=== PATIENT | female | born 1995 | race Caucasian/White ===

== ENCOUNTER 2019-04-01 02:16 | Emergency (ER) | payer SELFPAY ==
[2019-04-01 02:17] VITALS: BP 116/75; PULSE 128; RESP 15; TEMP 37.6; O2SAT 96; BMI 19.6
[2019-04-01] MEDS: dexAMETHasone 10 MG/ML Vial PO.IVFORM (02:57)
[2019-04-01] MEDS: Ketorolac 60 MG/2 ML Vial IM (02:58)
--- NOTE | 2019-04-01 03:25 | ED.VIS.URI ---
History of Present Illness Chief Complaint: Fever Informant: Patient Onset: Days - 2 Context: Gradual Onset Timing: Continuous Quality: sore Location: throat Current Severity: Moderate Maximum Severity: Moderate Worsened by: Swallowing Relieved by: - - nothing. taken no meds. Associated Symptoms: Nasal Congestion, Myalgias, Nausea, Vomiting, Nonproductive cough - mild. Negative for: Diarrhea, Shortness of Breath, Chest Pain Narrative: A little nausea and vomited twice. Arthralgias have been chronic for 3 years, she has a history of rheumatoid arthritis and lupus that remains untreated simply because she does not have a doctor and does not see 1 regularly. She states the symptoms are annoying but she can live with them. She has myalgias on top of the arthralgias now with this illness. Febrile at home. - Past Medical History (1) SLE (systemic lupus erythematosus) Status: Chronic (2) Rheumatoid arthritis Status: Chronic Past Medical History - Allergies and Home Meds Allergies/Adverse Reactions: Allergies aspirin Adverse Reaction (Verified 04/01/19 02:20) Nausea/Vom/Diarrhea COCONUT Allergy (Uncoded 01/04/15 19:19) Swelling Primary Care Physician: Care Physician,No Primary [Primary Care Provider] - Lives: Spouse/ Significant Other Smoking Status: Never smoker Drugs: None Review of Systems General: Reports: Fever, Malaise Eyes: Denies: Visual changes - bilaterally, Diplopia ENT: Reports: Sore throat. Denies: Bilateral ear pain Cardiovascular: Denies: Chest pain, Palpitations Respiratory: Reports: Cough. Denies: Dyspnea, Sputum, Dyspnea on exertion Gastrointestinal: Reports: Nausea, Vomiting. Denies: Abdominal pain, Diarrhea, Melena, Hematochezia Musculoskeletal: Reports: Myalgias, Arthralgias, Neck pain. Denies: Back pain, Swelling, Extremity Pain Skin: Denies: Rash, Wounds Neurological: Reports: Headache. Denies: Weakness, Parasthesia Physical Exam Vital Signs/Narrative: Vital Signs Temp Pulse Resp BP Pulse Ox 04/01/19 02:17 99.7 F H 128 H 15 116/75 96 Inital Vital Signs reviewed: Yes General: Well nourished, Well developed Head: Normocephalic, Atraumatic Eyes: Perrl, EOMI Ears: Normal external canal, TM's clear Nose: Normal Inspection, No Rhinorrhea Mouth/Throat: Normal Inspection, Posterior Oropharyngeal Erythema Tonsils: Negative for: Right Tonsilar Erythema, Left Tonsilar Erythema, Right Tonsilar Exudates, Left Tonsilar Exudates, Right Tonsilar Swelling, Left Tonsilar Swelling Neck: Supple, No Meningismus, Anterior Lymphadenopathy. Negative for: Posterior Lymphadenopathy Cardiovascular: Regular rate, Regular rhythm, No murmurs, Tachycardia Respiratory: No distress, CTA bilaterally, Chest nontender Abdomen: Soft, Nontender, Nondistended, Normal bowel sounds Back: Nontender, Normal Inspection. Negative for: CVA tenderness Extremities: Nontender, No edema Skin: Normal color, No rash, No Trauma Neurological: Alert, Oriented x3, Cranial nerves II-XII grossly intact, Normal Strength, Normal Sensation, Normal Gait Psychological: Normal affect, Normal Mood Diagnostic/Tx/Re-eval - Medical Decision Making Rapid strep is negative. Culture is sent. Presumed viral illness given her symptoms, unless culture returns positive, will treat with supportive care. Given Toradol here as well as Decadron which hopefully will help her symptoms as well as her chronic arthralgias. Prescribed Zofran as well, and given a dose here. At this time, we have seen no cases of influenza yet. ED Disposition - Plan for ED Patient: Disposition: Home or Assisted Living Diagnosis: Viral syndrome Instructions: VIRAL SYNDROME (Adult) Prescriptions: Ondansetron [Zofran] 8 mg PO Q8H PRN PRN #12 tab PRN Reason: Nausea Prescription Printed Referrals: Cari Rodriguez [NON-STAFF] - 1 Week if not improving
[2019-04-01] MEDS: Ondansetron ODT 4 MG Tablet 8 MG PO (03:42)
[2019-04-01 03:44] VITALS: BP 95/72; PULSE 70; RESP 16; O2SAT 97
== END 2019-04-01 03:49 | disposition home or self-care (01) ==
PROVIDERS: Emergency Provider Emergency Medicine
DX: B34.9 Viral infection, unspecified (principal); R11.2 Nausea with vomiting, unspecified; J02.9 Acute pharyngitis, unspecified; R05 Cough; R51 Headache; M32.9 Systemic lupus erythematosus, unspecified; M06.9 Rheumatoid arthritis, unspecified
CPT/HCPCS: 87880; 96372; 99283

== ENCOUNTER 2019-09-21 20:39 | Emergency (ER) | payer SELFPAY ==
[2019-09-21 20:40] VITALS: BP 105/71; PULSE 90; RESP 15; TEMP 36.3; O2SAT 99; BMI 20.2
--- NOTE | 2019-09-21 21:02 | CT_ITS ---
STUDY: CT BRAIN WITHOUT CONTRAST REASON FOR EXAM: Female, 24 years old. PT STATED SYNCOPE TODAY, HAPPENS NEARLY WEEKLY RADIATION DOSAGE (If Supplied By Facility): CTDIvol = ( 443.99 ) mGy, DLP = ( 745.49 ) mGycm TECHNIQUE: Transaxial CT imaging of the brain was performed without administration of intravenous contrast material. Individualized dose optimization techniques were used for this CT. COMPARISON: No relevant priors. FINDINGS: Normal soft tissue structures. Normal calvarium. Normal size ventricles and extra-axial spaces for the patient''s age. There is mild asymmetry of the deep white matter. There is mild hypodensity within the left frontal parietal lobe white matter.. Normal basal ganglia and thalami. Normal brainstem. Normal cerebellum. There is no intracranial hemorrhage. There are no findings of an acute ischemic infarction. Normal visualized paranasal sinuses. CT/Brain/Head without Contrast IMPRESSION: Mild asymmetry in the white matter which may be a normal variant. However subtle edema within the left frontal parietal lobes cannot be excluded. MRI brain follow-up is recommended Electronically Signed: Tip Lane, at 22:50 EDT Tel , Service support ,
--- NOTE | 2019-09-21 21:02 | EKG12_ITS ---
Test Reason : SYNCOPE Blood Pressure : / mmHG Vent. Rate : 083 BPM Atrial Rate : 083 BPM P-R Int : 150 ms QRS Dur : 082 ms QT Int : 360 ms P-R-T Axes : 057 064 021 degrees QTc Int : 423 ms Normal sinus rhythm Normal ECG Confirmed by HIREN CARCAMO, JAY ([id number]), graphic editor NEAL JUNE ([id number]) on 09/25/2019 2:37:15 PM Referred By: KAISER Confirmed By:JAY MARADIAGA MD
[2019-09-21 22:05] LABS: Absolute Lymphocyte Count 1.55 X10^3/uL (0.83-4.51); Absolute Neutrophil Count 1.9 X10^3/uL (2.0-7.7); Basophil# 0.01 X10^3/uL; Basophil% 0.2 % (0-1); Eosinophil# 0.04 X10^3/uL; Hematocrit 35.5 % (37-47); Hemoglobin 11.6 g/dL (12.0-15.0); Lymphocyte # 1.55 X10^3/ul (4.0); Lymphocyte % 38.1 % (19-41); Mean Corp Hgb Conc 32.7 g/dL (32-36); Mean Corpuscular Volume 85.7 fL (81-99); Mean Platelet Vol. 10.7 fl (6.2-12.0); Monocyte# 0.54 X10^3/uL; Monocyte% 13.3 % (0-10); NRBC Flagged by Analyzer 0 % (0-5); Neutrophil # 1.92 X10^3/uL (2.7-7.7); Neutrophil % 47.2 % (47-70); Platelet Count 207 K/mm3 (150-450); RBC Distribution Width CV 12.5 % (11.6-14.6); RBC Distribution Width SD 38.5 fl (35.1-43.9); Red Blood Count 4.14 M/mm3 (4.2-5.4); White Blood Count 4.1 K/mm3 (4.4-11.0)
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
[2019-09-21 22:21] LABS: Anion Gap 3 (5-15); BUN 11 mg/dL (7-18); BUN/Creat Ratio 16.2 RATIO (10-20); Calcium,Total 9.1 mg/dL (8.5-10.1); Chloride 108 mmol/L (98-107); Creatinine, Serum 0.68 mg/dL (0.55-1.02); EST Glomerular Filtration Rate 115 mL/min (>60); Est Glom Filt Rate - Afr Amer 139 mL/min (>60); Estimated Creatinine Clearance 97.09 ml/min; Glucose 80 mg/dL (74-106); Potassium 3.7 mmol/L (3.5-5.1); Sodium Level 138 mmol/L (136-145)
[2019-09-21 22:38] LABS: Internal QC Validated? YES +Cl - CLEAR BKGD; Pregnancy, Serum, hCG Quali. NEGATIVE Negative
[2019-09-21 22:46] LABS: Thyroid Stim Hormone (TSH) 3.66 uIU/mL (0.358-3.74)
--- NOTE | 2019-09-21 22:58 | ED.DEP ---
ED Disposition - Plan for ED Patient: Instructions: ED Fainting Uncertain Cause Referrals: Care Physician,No Primary [Primary Care Provider] - Nneka Peters MD [STAFF PHYSICIAN] - 3-5 Days
[2019-09-21 23:01] VITALS: BP 106/82; BP 111/76; BP 112/82; PULSE 82; PULSE 89; PULSE 96
[2019-09-21] MEDS: Acetaminophen 325 MG Tablet 650 MG PO (23:15)
[2019-09-21 23:17] VITALS: BP 106/69; PULSE 97; RESP 19; O2SAT 98
== END 2019-09-21 23:29 | disposition home or self-care (01) ==
LOC: ED 23:27
PROVIDERS: Emergency Provider Emergency Medicine
DX: R55 Syncope and collapse (principal); T23.222A Burn of second degree of single left finger (nail) except thumb, initial encounter; X13.1XXA Other contact with steam and other hot vapors, initial encounter; Y93.9 Activity, unspecified; Y92.9 Unspecified place or not applicable; E03.9 Hypothyroidism, unspecified; M06.9 Rheumatoid arthritis, unspecified; M41.9 Scoliosis, unspecified; D72.819 Decreased white blood cell count, unspecified; Z86.2 Personal history of diseases of the blood and blood-forming organs and certain disorders involving the immune mechanism
CPT/HCPCS: 70450; 80048; 84443; 84703; 85025; 93005; 99284

== ENCOUNTER 2020-05-14 17:25 | Emergency (ER) | payer SELFPAY ==
[2020-05-14 17:26] VITALS: BP 111/76; PULSE 96; RESP 14; TEMP 36.8; O2SAT 98; BMI 20.4
--- NOTE | 2020-05-14 17:40 | EKG12_ITS ---
Test Reason : CP Blood Pressure : / mmHG Vent. Rate : 096 BPM Atrial Rate : 096 BPM P-R Int : 146 ms QRS Dur : 076 ms QT Int : 340 ms P-R-T Axes : 068 057 031 degrees QTc Int : 429 ms Normal sinus rhythm Normal ECG Confirmed by SABI CARCAMO, MISHA ([id number]), technical writer and editor MICHELE HARRINGTON ([id number]) on 05/19/2020 11:07:41 AM Referred By: MARLON Confirmed By:QUE ECLESTIN MD
[2020-05-14] MEDS: 0.9% Normal Saline 1,000 ML 150 ML IV (18:05)
[2020-05-14 18:09] VITALS: BP 107/68; BP 107/71; BP 115/81; PULSE 106; PULSE 95; PULSE 97
[2020-05-14 18:17] LABS: Absolute Lymphocyte Count 1.45 X10^3/uL (0.83-4.51); Absolute Neutrophil Count 4.8 X10^3/uL (2.0-7.7); Basophil# 0.02 X10^3/uL; Basophil% 0.3 % (0-1); Eosinophil# 0.07 X10^3/uL; Hematocrit 36.6 % (37-47); Hemoglobin 11.6 g/dL (12.0-15.0); Lymphocyte # 1.45 X10^3/ul (4.0); Lymphocyte % 21.3 % (19-41); Mean Corp Hgb Conc 31.7 g/dL (32-36); Mean Corpuscular Hgb 26.9 pg (27.0-32.0); Mean Corpuscular Volume 84.9 fL (81-99); Mean Platelet Vol. 10.9 fl (6.2-12.0); Monocyte% 7.3 % (0-10); NRBC Flagged by Analyzer 0 % (0-5); Neutrophil # 4.75 X10^3/uL (2.7-7.7); Neutrophil % 69.8 % (47-70); Platelet Count 236 K/mm3 (150-450); RBC Distribution Width CV 12.9 % (11.6-14.6); RBC Distribution Width SD 39.5 fl (35.1-43.9); Red Blood Count 4.31 M/mm3 (4.2-5.4); White Blood Count 6.8 K/mm3 (4.4-11.0)
--- NOTE | 2020-05-14 18:20 | RAD_ITS ---
STUDY: X-RAY CHEST REASON FOR EXAM: Female, 24 years old. Chest pain, syncope TECHNIQUE: Single frontal view of the chest. COMPARISON: 12/28/2014 FINDINGS: Cardiac silhouette unremarkable. Pulmonary vascularity unremarkable. Aorta unremarkable. No focal airspace opacities. No pleural effusions. Upper abdomen unremarkable. Osseous structures demonstrating incompletely characterized scoliosis. No pneumothorax. RAD/Chest 1 View (Portable) IMPRESSION: No acute cardiopulmonary process identified. Electronically Signed: Serg Noyola, at 18:58 EST Tel , Service support ,
[2020-05-14 18:28] LABS: Internal QC Validated? YES +Cl - CLEAR BKGD; Pregnancy, Serum, hCG Quali. NEGATIVE Negative
[2020-05-14 18:29] LABS: D-Dimer Quantitative (DVT/PE) <= 0.27 FEU/ug/m (0.27-0.49)
[2020-05-14 18:36] LABS: Anion Gap 6 (5-15); BUN 11 mg/dL (7-18); BUN/Creat Ratio 13.3 RATIO (10-20); Chloride 106 mmol/L (98-107); Creatinine, Serum 0.83 mg/dL (0.55-1.02); EST Glomerular Filtration Rate 90 mL/min (>60); Est Glom Filt Rate - Afr Amer 109 mL/min (>60); Estimated Creatinine Clearance 79.55 ml/min; Glucose 92 mg/dL (74-106); Potassium 3.6 mmol/L (3.5-5.1); Sodium Level 139 mmol/L (136-145)
[2020-05-14 19:02] VITALS: BP 146/86; PULSE 70; RESP 16; O2SAT 98
--- NOTE | 2020-05-14 19:30 | CT_ITS ---
STUDY: CTA CHEST REASON FOR EXAM: Female, 24 years old. CHEST PAIN AND PASSED OUT WHILE WORKING OUT RADIATION DOSAGE (If Supplied By Facility): CTDIvol = ( 3.92 ) mGy, DLP = ( 121.19 ) mGycm TECHNIQUE: The examination was performed with the intravenous administration of IV 100mL Isovue-370. Post-processing of the angiographic images was performed, with multiplanar reformation and 3D reconstruction. Individualized dose optimization techniques were used for this CT. COMPARISON: 05/14/2020 FINDINGS: Normal enhancement of the main pulmonary artery and right and left pulmonary arteries. Normal enhancement of the bilateral peripheral pulmonary arteries. There is no demonstrated pulmonary embolism. Normal thoracic aorta and visualized great vessels. There is no demonstrated aortic dissection. Normal heart and pericardium. Normal mediastinum. Normal hilar regions. Normal visualized trachea and bronchi. The lungs are well expanded. Normal pulmonary parenchyma. Normal pleura. Normal chest wall structures. Normal osseous structures. Normal visualized upper abdomen. CT/CTA Chest W/WO Contrast IMPRESSION: Normal CTA chest examination, without a demonstrated pulmonary embolism or arterial dissection. Electronically Signed: Temo Pozo MD at 20:06 EST , Service support ,
--- NOTE | 2020-05-14 20:09 | ED.VISSUMM ---
- ER Visit Summary Date of Service: 05/14/20 Chief Complaint: [Chest pain and syncope] History of Present Illness: The patient is a 24 F [presents to the emergency department with complaint of chest pain that started about an hour ago. Patient states that she was working out when she started having discomfort in her chest and she got lightheaded and sat down and then passed out for a few seconds. Patient tells me that she had similar episode 2 months ago but never sought any attention for it. Patient states that when she was younger this used to happen all the time. Patient described tightness in her chest. And she rated her pain a 5 out of 10 on arrival. She denies any significant shortness of breath. She denies diaphoresis. She had no nausea or vomiting. Patient states that she had another negative Covid test 5 days ago. Patient had a cough last week but that seems to have improved. No family history of sudden cardiac . No family history of dysrhythmias that she is aware of.] Physical Examination: [HEENT-PERRLA, EOMI. Cranial nerves II through XII grossly intact. TMs clear. Mucous membranes moist. No adenopathy. Cardiovascular-regular rate and rhythm without murmur or ectopy Lungs-clear to auscultation, chest wall stable without crepitus or subcu emphysema Abdomen-normoactive bowel sounds, soft, nontender, no rebound or rigidity, no peritoneal signs. Extremities-intact ?4, normal range of motion, normal pulses, atraumatic] Test Results: [EKG obtained arrival shows sinus rhythm with a ventricular rate of 96 bpm with no acute ST segment changes. CBC with differential was normal. Chest x-ray read by myself as normal and radiology read it as no acute disease. Troponin was less than 0.015. D-dimer was normal at less than 0.27. hCG was negative.] Emergency Department Course and Treatment: [IV line established on arrival. Patient case discussed with cardiology on-call Dr. Darion Pederson who recommended obtaining a CTA of the chest to rule out thoracic outlet syndrome versus other vascular anomaly. 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 It may contain incorrect words, spelling, and punctuation that were not noted in review of the chart prior to signing ED Disposition - Plan for ED Patient: Referrals: Care Physician,No Primary [Primary Care Provider] -
--- NOTE | 2020-05-14 20:13 | ED.DEP ---
ED Disposition - Plan for ED Patient: Instructions: ED Chest Pain, Uncertain Cause, ED Near-Fainting, Uncertain Cause Referrals: Care Physician,No Primary [Primary Care Provider] - Анна Jason MD [STAFF PHYSICIAN] - 3-5 Days
[2020-05-14 20:23] VITALS: BP 108/70; PULSE 93; RESP 14; O2SAT 999
== END 2020-05-14 20:24 | disposition home or self-care (01) ==
LOC: ED 18:51
PROVIDERS: Emergency Provider Emergency Medicine
DX: R07.89 Other chest pain (principal); R55 Syncope and collapse; M06.9 Rheumatoid arthritis, unspecified
CPT/HCPCS: 71045; 71275; 80048; 84484; 84703; 85025; 85379; 93005; 96360; 96361; 99285; J7030; Q9967; A4216

== ENCOUNTER 2020-06-28 03:52 | Emergency (ER) | payer SELFPAY ==
[2020-06-28 03:52] VITALS: BP 96/76; PULSE 91; RESP 14; O2SAT 98
[2020-06-28 03:53] VITALS: BP 118/86; PULSE 114; RESP 16; TEMP 36.4; O2SAT 100; BMI 19.6
--- NOTE | 2020-06-28 03:55 | ED.VIS.GEN ---
History of Present Illness Chief Complaint: ETOH Intox Informant: Patient Onset: Today Context: Gradual Onset Timing: Continuous Current Severity: Moderate Maximum Severity: Moderate Narrative: Patient is a 24-year-old female with history of lupus and rheumatoid arthritis who presents with alcohol intoxication. Patient states she was out with friends drinking. She states that she was drinking whiskey and then shots of vodka. She states she got sick and started to vomit. She states that she then had a panic attack because she felt like she could not breathe. She denies being suicidal homicidal. She denies abdominal pain. The patient is very apologetic and tearful on arrival. Prior similar symptoms: No Recent Illness/Hospitalization: No Past Medical History - Allergies and Home Meds Allergies/Adverse Reactions: Allergies tizanidine Allergy (Verified 06/28/20 03:57) NEEDS FOLLOW-UP aspirin Adverse Reaction (Verified 06/28/20 03:57) Nausea/Vom/Diarrhea COCONUT Allergy (Uncoded 05/14/20 17:29) Swelling MUSCLE RELAXER Adverse Reaction (Uncoded 05/14/20 17:29) NEEDS FOLLOW-UP Primary Care Physician: Care Physician,No Primary [Primary Care Provider] - Prior records reviewed: Yes Past Medical History: - - Lupus, rheumatoid arthritis, scoliosis Surgical History: noncontributory Smoking Status: Never smoker Review of Systems General: Denies: Chills, Fever, Sweats Eyes: Denies: Visual changes - bilaterally, Diplopia ENT: Denies: Rhinorrhea, Sore throat Cardiovascular: Denies: Chest pain, Palpitations Respiratory: Denies: Dyspnea, Cough, Dyspnea on exertion Gastrointestinal: Reports: Nausea, Vomiting. Denies: Abdominal pain, Diarrhea, Melena, Hematochezia Genitourinary: Denies: Dysuria, Hematuria, Frequency Musculoskeletal: Denies: Back pain, Extremity Pain Skin: Denies: Rash, Wounds Neurological: Denies: Headache, Weakness, Numbness Physical Exam Inital Vital Signs reviewed: Yes General: Well nourished, Well developed, No Acute Distress Head: Normocephalic, Atraumatic Eyes: Perrl, EOMI ENT: Moist mucous membranes, No rhinorrhea Neck: Supple, Nontender Cardiovascular: Regular rate, Regular rhythm, No murmurs Respiratory: No distress, CTA bilaterally, Chest nontender Abdomen: Soft, Nontender, Nondistended, Normal bowel sounds Back: Nontender, Normal Inspection Extremities: Nontender, No edema Skin: Normal color, No rash Neurological: Alert, Oriented x3, Cranial nerves II-XII grossly intact, Normal Strength, Normal Sensation Psychological: Normal affect, Normal Mood Diagnostic/Tx/Re-eval Abnormal Lab Results 06/28/20 06/28/20 06/28/20 04:03 04:03 04:03 WBC 5.3 RBC 4.65 Hgb 12.9 Hct 39.5 MCV 84.9 MCH 27.7 MCHC 32.7 RDW Std Deviation 39.8 RDW Coeff of Davina 13.0 Plt Count 273 MPV 10.5 Immature Gran % (Auto) 0.200 Neut % (Auto) 50.2 Lymph % (Auto) 42.5 H [place] % (Auto) 6.1 Eos % (Auto) 0.8 Baso % (Auto) 0.2 Absolute Neuts (auto) 2.7 Absolute Lymphs (auto) 2.24 Nucleated RBC % 0 Sodium 141 Potassium 3.6 Chloride 107 Carbon Dioxide 25.0 Anion Gap 9 BUN 11 Creatinine 0.88 Estim Creat Clear Calc 73.93 Est GFR (MDRD) Af Amer 102 Est GFR (MDRD) Non-Af 84 BUN/Creatinine Ratio 12.5 Glucose 117 H Calcium 9.8 Serum , Qual Ethyl Alcohol 213.0 06/28/20 04:03 WBC RBC Hgb Hct MCV MCH MCHC RDW Std Deviation RDW Coeff of Davina Plt Count MPV Immature Gran % (Auto) Neut % (Auto) Lymph % (Auto) [place] % (Auto) Eos % (Auto) Baso % (Auto) Absolute Neuts (auto) Absolute Lymphs (auto) Nucleated RBC % Sodium Potassium Chloride Carbon Dioxide Anion Gap BUN Creatinine Estim Creat Clear Calc Est GFR (MDRD) Af Amer Est GFR (MDRD) Non-Af BUN/Creatinine Ratio Glucose Calcium Serum , Qual NEGATIVE Ethyl Alcohol - Medical Decision Making The patient presents intoxicated with vomiting. She is also complaining of anxiety. She does have mild tachycardia. IV was established. Labs were obtained. Patient's alcohol level is elevated. However, the rest of her labs are unremarkable. She was given fluids and Phenergan. The patient will be observed. Her tachycardia has improved. I do feel that once the patient can demonstrate clinical sobriety she can be discharged to home. If any change occurs, addendum will be added. Impression 1. Alcohol intoxication ED Disposition - Plan for ED Patient: Instructions: ED Alcohol Intoxication Referrals: Care Physician,No Primary [Primary Care Provider] -
[2020-06-28] MEDS: proMETHazine 25 MG/ML Syringe 12.5 MG IV (04:03)
[2020-06-28] MEDS: 0.9% Normal Saline 1,000 ML 1000 ML IV (04:05)
[2020-06-28 04:08] LABS: Absolute Lymphocyte Count 2.24 X10^3/uL (0.83-4.51); Absolute Neutrophil Count 2.7 X10^3/uL (2.0-7.7); Basophil# 0.01 X10^3/uL; Basophil% 0.2 % (0-1); Eosinophil# 0.04 X10^3/uL; Eosinophils% 0.8 % (0-5); Hematocrit 39.5 % (37-47); Hemoglobin 12.9 g/dL (12.0-15.0); Lymphocyte # 2.24 X10^3/ul (4.0); Lymphocyte % 42.5 % (19-41); Mean Corp Hgb Conc 32.7 g/dL (32-36); Mean Corpuscular Hgb 27.7 pg (27.0-32.0); Mean Corpuscular Volume 84.9 fL (81-99); Mean Platelet Vol. 10.5 fl (6.2-12.0); Monocyte# 0.32 X10^3/uL; Monocyte% 6.1 % (0-10); NRBC Flagged by Analyzer 0 % (0-5); Neutrophil # 2.65 X10^3/uL (2.7-7.7); Neutrophil % 50.2 % (47-70); Platelet Count 273 K/mm3 (150-450); RBC Distribution Width SD 39.8 fl (35.1-43.9); Red Blood Count 4.65 M/mm3 (4.2-5.4); White Blood Count 5.3 K/mm3 (4.4-11.0)
[2020-06-28 04:18] LABS: Internal QC Validated? YES +Cl - CLEAR BKGD
[2020-06-28 04:19] LABS: Pregnancy, Serum, hCG Quali. NEGATIVE Negative
[2020-06-28 04:21] LABS: Anion Gap 9 (5-15); BUN 11 mg/dL (7-18); BUN/Creat Ratio 12.5 RATIO (10-20); Calcium,Total 9.8 mg/dL (8.5-10.1); Chloride 107 mmol/L (98-107); Creatinine, Serum 0.88 mg/dL (0.55-1.02); EST Glomerular Filtration Rate 84 mL/min (>60); Est Glom Filt Rate - Afr Amer 102 mL/min (>60); Estimated Creatinine Clearance 73.93 ml/min; Glucose 117 mg/dL (74-106); Potassium 3.6 mmol/L (3.5-5.1); Sodium Level 141 mmol/L (136-145)
[2020-06-28 05:27] VITALS: BP 75/45; PULSE 85; RESP 14; O2SAT 97
[2020-06-28] MEDS: 0.9% Normal Saline 1,000 ML 999 ML IV ×2 (05:28→07:13)
[2020-06-28 07:14] VITALS: BP 87/69; PULSE 92; RESP 14; O2SAT 97
[2020-06-28 08:17] VITALS: BP 86/51; PULSE 80; RESP 16; O2SAT 97
--- NOTE | 2020-06-28 08:53 | ED.RN ---
pt attempted to call roommate for ride. encouraged to continue to try to get a ride
[2020-06-28 09:21] VITALS: BP 88/69; PULSE 90; RESP 16; O2SAT 99
--- NOTE | 2020-06-28 09:21 | ED.RN ---
woke pt and had her attempt to make calls for a ride again. no response from calls.
--- NOTE | 2020-06-28 10:25 | ED.RN ---
friend presented to pick pt up
== END 2020-06-28 10:25 | disposition home or self-care (01) ==
PROVIDERS: Emergency Provider Emergency Medicine
DX: F10.129 Alcohol abuse with intoxication, unspecified (principal); Y90.9 Presence of alcohol in blood, level not specified; M06.9 Rheumatoid arthritis, unspecified; M32.9 Systemic lupus erythematosus, unspecified; M41.9 Scoliosis, unspecified
CPT/HCPCS: 80048; 82077; 84703; 85025; 96361; 96374; 99285; J7030; A4216

== ENCOUNTER 2020-09-29 22:45 | Emergency (ER) | payer SELFPAY ==
[2020-09-29 22:46] VITALS: BP 114/74; PULSE 120; RESP 16; TEMP 36.9; O2SAT 92; BMI 18.9
--- NOTE | 2020-09-29 23:17 | CT_ITS ---
HISTORY: Pain TECHNIQUE: Helically acquired images were obtained of the abdomen and pelvis without oral or IV contrast. A radiation dose optimization technique was used for this scan. COMPARISON: CTA of the chest from May 14, 2020, image down below the adrenal glands. FINDINGS: # of images incl. paperwork: [id number] LUNG BASES: clear. CT abdomen: Levoscoliosis within the lumbar spine. Vertebral body height is well preserved. Facets are adequately aligned. The gallbladder remains. Liver, spleen, pancreas, and adrenal glands are normal. The right kidney demonstrates perirenal edema. The right ureter is slightly dilated. I cannot follow the right ureter all the way to the urinary bladder, however, I perceived no calcifications within the right hemipelvis that might represent ureteric stones. The left kidney is normal. The aorta is normal. There is no intra-or extrahepatic biliary ductal dilatation. CT pelvis: No ascites is present. The the uterus and ovaries are not pathologically enlarged. Follicles are present on both ovaries. A small calcification is present within the right kidney. The appendix is normal. Series 2 image 124. The bladder is normal. Bowel gas pattern is normal. CT/Abdomen/Pelvis without Cont IMPRESSION: Mild right perirenal edema with prominence to the right ureter. I cannot follow the right ureter all the way to the urinary bladder, but I see no calcifications within the right hemipelvis that are suspicious for possible ureteric stones. Findings could be indicative of inflammation to the right kidney such as pyelonephritis. Individualized dose optimization techniques were used for this CT. at 0028 Reported and signed by: Eloy Bah MD Electronically Signed: Eloy Bah MD at 0:27 EDT Tel , Service support ,
--- NOTE | 2020-09-29 23:18 | EDS_ITS ---
HPI History of Present Illness Chief Complaint: General Illness Narrative Narrative: This patient is a 25-year-old female who presents with a febrile illness. She complains about 4 days of fever body and joint aches nausea and vomiting. She reports bilious emesis. No diarrhea. She also complains of right upper quadrant abdominal pain. She has a mild cough and feels a little short of breath. No chest pain. She denies any urinary symptoms such as dysuria frequency or urgency. She reports history of lupus and rheumatoid arthritis but is not on immunosuppressants. [facility] Medical History (Updated 09/29/20 @ 23:[address] Nitin Sheth MD) Anemia Hypothyroid Lupus Marijuana smoker, episodic Occasional alcohol consumption Scoliosis Home Medications NK 09/21/19 [History Last Taken Unknown] Allergy/AdvReac Type Severity Reaction Status Date / Time tizanidine Allergy NEEDS Verified 09/29/20 22:51 FOLLOW-UP amoxicillin AdvReac Rash Verified 09/29/20 22:52 aspirin AdvReac Nausea/Vom/ Verified 09/29/20 22:51 Diarrhea COCONUT Allergy Swelling Uncoded 09/29/20 22:51 MUSCLE RELAXER AdvReac NEEDS Uncoded 09/29/20 22:51 FOLLOW-UP Social History Smoking Status: Never smoker ROS ROS ED Constitutional Constitutional ED: Reports fever(s) ENT ENT ED: Reports sore throat Cardiovascular Cardiovascular: Denies chest pain Respiratory/Chest Respiratory/Chest: Reports cough and dyspnea Gastrointestinal Gastrointestinal: Reports abdominal pain, nausea and vomiting Genitourinary Genitourinary ED: Denies dysuria or urinary frequency Musculoskeletal Musculoskeletal: Reports arthralgias and myalgias Integumentary Denies rash EXAM Physical Exam Const Vital Signs: 09/29/20 22:46 09/29/20 23:30 Temperature 98.4 F Temperature Source Temporal Pulse Rate 120 H Respiratory Rate 16 Respiratory Effort Normal Non-Labored Respiratory Pattern Normal Blood Pressure 114/74 Blood Pressure Mean 87 Pulse Ox 92 Oxygen Delivery Method Room Air Positive well nourished HEENT Reports moist mucous membranes Eyes EOMs intact bilaterally Neck supple Chest Wall inspection of chest normal Resp normal respiratory effort and clear to auscultation bilaterally Cardio regular rhythm Rate: tachycardic GI non-distended Palpation: soft and tender RUQ Neuro Sensorium / Orientation: alert Psych mental status grossly normal Skin no rashes or lesions noted MDM MDM MDM Narrative Medical decision making narrative: Patient treated with IV fluids, Toradol, Zofran. Laboratory studies and CT imaging were ordered. CBC unremarkable, chemistries notable for sodium 130, potassium 3.1, normal creatinine. Lipase and hepatic functions were unremarkable. CT of the abdomen and pelvis and Covid swabs are pending at the time of this dictation. Patient signed out to the oncoming physician to follow-up on final results and reevaluate. Lab Data Labs: Laboratory Results - last 24 hr 09/29/20 09/29/20 23:15 23:15 WBC 10.5 RBC 4.01 L Hgb 11.1 L Hct 33.3 L MCV 83.0 MCH 27.7 MCHC 33.3 RDW Std Deviation 37.9 RDW Coeff of Davina 12.4 Plt Count 240 MPV 11.1 Immature Gran % (Auto) 0.800 Neut % (Auto) 71.8 H Lymph % (Auto) 17.1 L Peach % (Auto) 9.9 Eos % (Auto) 0.3 Baso % (Auto) 0.1 Absolute Neuts (auto) 7.6 Absolute Lymphs (auto) 1.80 Nucleated RBC % 0 Sodium 130 L Potassium 3.1 L Chloride 97 L Carbon Dioxide 23.0 Anion Gap 10 BUN 8 Creatinine 0.85 Estim Creat Clear Calc 73.37 Est GFR (MDRD) Af Amer 106 Est GFR (MDRD) Non-Af 88 BUN/Creatinine Ratio 9.5 L Glucose 87 Calcium 9.1 Total Bilirubin 0.40 AST 13 L ALT 11 L Alkaline Phosphatase 68 Total Protein 9.0 H Albumin 3.8 Globulin 5.2 H Albumin/Globulin Ratio 0.7 L Lipase 75 Discharge Plan Triage Chief Complaint: General Illness ED Provider: Nitin Sheth Dx/Rx/DC Orders Clinical Impression: Abdominal pain, Fever, Vomiting Prescriptions: No Action NK RF: 0 Primary Care Provider: Care Physician,No Primary Referrals: Care Physician,No Primary [Primary Care Provider] -
--- NOTE | 2020-09-29 23:31 | ED.RN ---
per Dr. Sheth, pt does not need sitter at this time.
[2020-09-29 23:32] LABS: Absolute Neutrophil Count 7.6 X10^3/uL (2.0-7.7); Basophil# 0.01 X10^3/uL; Basophil% 0.1 % (0-1); Eosinophil# 0.03 X10^3/uL; Eosinophils% 0.3 % (0-5); Hematocrit 33.3 % (37-47); Hemoglobin 11.1 g/dL (12.0-15.0); Lymphocyte % 17.1 % (19-41); Mean Corp Hgb Conc 33.3 g/dL (32-36); Mean Corpuscular Hgb 27.7 pg (27.0-32.0); Mean Platelet Vol. 11.1 fl (6.2-12.0); Monocyte# 1.04 X10^3/uL; Monocyte% 9.9 % (0-10); NRBC Flagged by Analyzer 0 % (0-5); Neutrophil # 7.58 X10^3/uL (2.7-7.7); Neutrophil % 71.8 % (47-70); Platelet Count 240 K/mm3 (150-450); RBC Distribution Width CV 12.4 % (11.6-14.6); RBC Distribution Width SD 37.9 fl (35.1-43.9); Red Blood Count 4.01 M/mm3 (4.2-5.4); White Blood Count 10.5 K/mm3 (4.4-11.0)
[2020-09-29] MEDS: 0.9% Normal Saline 1,000 ML 1000 ML IV (23:34)
[2020-09-29] MEDS: Ketorolac 30 MG/ML Syringe IV (23:35)
[2020-09-29] MEDS: Ondansetron 4 MG/2 ML Vial IV (23:35)
[2020-09-29 23:43] LABS: ALB/GLOB Ratio 0.7 RATIO (0.9-2.4); AST(SGOT) 13 U/L (15-37); Alanine Aminotransfer ALT/SGPT 11 U/L (13-56); Albumin, Serum 3.8 g/dL (3.2-5.0); Alkaline Phosphatase 68 U/L (45-117); Anion Gap 10 (5-15); BUN 8 mg/dL (7-18); BUN/Creat Ratio 9.5 RATIO (10-20); Calcium,Total 9.1 mg/dL (8.5-10.1); Chloride 97 mmol/L (98-107); Creatinine, Serum 0.85 mg/dL (0.55-1.02); EST Glomerular Filtration Rate 88 mL/min (>60); Est Glom Filt Rate - Afr Amer 106 mL/min (>60); Estimated Creatinine Clearance 73.37 ml/min; Globulin 5.2 g/dL (2.2-4.2); Glucose 87 mg/dL (74-106); Lipase 75 U/L (73-393); Potassium 3.1 mmol/L (3.5-5.1); Sodium Level 130 mmol/L (136-145)
[2020-09-30 00:06] LABS: Lactic Acid 0.9 mmol/L (0.4-1.9)
[2020-09-30 00:18] LABS: Mucous, Urine 0 SEEN /hpf (<or=2+); Red Blood Cells-Urine 0 SEEN /hpf (0-5)
[2020-09-30 00:19] LABS: Color, Urine Yellow (Yellow); Glucose, Dipstick Normal (Normal); Ketone-Dipstick 50 mg/dl (Negative); Leukocyte Esterase-Dipstick 100 /ul (Negative); Nitrite-Dipstick Negative (Negative); Occult Blood-Urine Negative /ul (Negative); Protein-Dipstick Negative (Negative); Urine Bilirubin Dipstick Negative (Negative); Urine Clarity Clear (Clear); Urine Urobilinogen Normal (Normal); Urine pH 6.5 (5.0 - 8.0)
[2020-09-30 00:26] LABS: Bacteria 1+ /hpf (None Seen); Squamous Epithelial Cells - UA 0-5 SEEN /hpf (5-10); White Blood Cells 5-10 SEEN /hpf (0-5)
[2020-09-30] MEDS: Ciprofloxacin 500 MG Tablet PO (01:08)
--- NOTE | 2020-09-30 01:21 | ED.RN ---
UNABLE TO ENTER DISPO. PT VT SIGNS 130/82, HR 81, SPO2 98%, RR 18. PT DISCHARGED TO HOME. RECIEVED DC INSTRUCTIONS. IV CATHETER REMOVED. RECIEVED ONE ORAL MEDICATION.
== END 2020-09-30 01:23 | disposition home or self-care (01) ==
PROVIDERS: Emergency Medicine; Emergency Provider Emergency Medicine
DX: R10.11 Right upper quadrant pain (principal); R50.9 Fever, unspecified; R11.2 Nausea with vomiting, unspecified; R05 Cough; M06.9 Rheumatoid arthritis, unspecified; M41.9 Scoliosis, unspecified; Z86.2 Personal history of diseases of the blood and blood-forming organs and certain disorders involving the immune mechanism
CPT/HCPCS: 74176; 80053; 81001; 83605; 83690; 85025; 87040; 87426; 96361; 96374; 96375; 99283; J7030; A4216; J2405

== ENCOUNTER 2021-02-12 16:38 | Emergency (ER) | payer SELFPAY ==
[2021-02-12 16:40] VITALS: BP 108/69; PULSE 83; RESP 14; TEMP 36.7; O2SAT 98; BMI 19.4
--- NOTE | 2021-02-12 16:52 | CT_ITS ---
STUDY: CT PELVIS WITH CONTRAST REASON FOR EXAM: Female, 25 years old. perineal abscess RADIATION DOSAGE (If Supplied By Facility): CTDIvol = ( 18.25 ) mGy, DLP = ( 626.73 ) mGycm TECHNIQUE: Transaxial imaging of the pelvis was performed without oral contrast. IV 100mL Isovue-370 was administered intravenously. Individualized dose optimization techniques were used for this CT. COMPARISON: None. FINDINGS: There is a 2 cm abscess in the left labium majus with adjacent inflammatory change. Perirectal space is clear. Intrapelvic structures are normal. Osseous structures are normal. CT/Pelvis WITH IV Contrast IMPRESSION: 2 cm left perineal/labium majus abscess. No intrapelvic infection. Electronically Signed: Donny Pizarro MD at 17:39 EDT Tel , Service support ,
--- NOTE | 2021-02-12 16:54 | EX.ED.DYSGE1 ---
HPI History of Present Illness Chief Complaint: Other, Pain/Inj Detail of Chief Complaint: Bartholin's abscess Informant: patient Onset/Context/Timing Onset: Weeks (1 week) Context: Gradual Onset Narrative Narrative: Patient presents secondary to Bartholin's abscess. She states it is quadrupled in size over the past week. [facility] They were going to drain it, but states when they did an internal exam they noted multiple cysts so she was sent to the emergency room. Patient denies fever or chills. She is currently on her menstrual cycle. [facility] Medical History Anemia Hypothyroid Lupus Marijuana smoker, episodic Occasional alcohol consumption Scoliosis Home Medications ciprofloxacin HCl 500 mg PO BID #14 tablet 09/30/20 [Rx Last Taken Unknown] doxycycline monohydrate 100 mg PO BID #20 cap 02/12/21 [Rx Last Taken Unknown] hydrocodone-acetaminophen 1 tab PO Q6H PRN 3 Days #10 tab 02/12/21 [Rx Last Taken Unknown] Allergy/AdvReac Type Severity Reaction Status Date / Time Penicillins [PCN] Allergy Rash Verified 02/12/21 16:40 tizanidine Allergy NEEDS Verified 09/29/20 22:51 FOLLOW-UP amoxicillin AdvReac Rash Verified 09/29/20 22:52 aspirin AdvReac Nausea/Vom/ Verified 09/29/20 22:51 Diarrhea COCONUT Allergy Swelling Uncoded 09/29/20 22:51 MUSCLE RELAXER AdvReac NEEDS Uncoded 09/29/20 22:51 FOLLOW-UP Social History Smoking Status: Never smoker ROS ROS ED Constitutional Constitutional ED: Denies chills or fever(s) Eyes Eyes: Denies change in vision ENT ENT ED: Denies sore throat Cardiovascular Cardiovascular: Denies chest pain Respiratory/Chest Respiratory/Chest: Denies cough or dyspnea Gastrointestinal Gastrointestinal: Denies abdominal pain, diarrhea, nausea or vomiting Genitourinary Genitourinary ED: Reports other Details: Bartholin's abscess ; Denies dysuria Musculoskeletal Musculoskeletal: Denies back pain Integumentary Reports abscess Neurologic Neurologic: Denies headache(s) or weakness Allergic/Immunologic Allergic/Immunologic ED: Denies urticaria EXAM Physical Exam Const Vital Signs: 02/12/21 16:40 02/12/21 19:34 Temperature 98.1 F Temperature Source Temporal Pulse Rate 83 88 Respiratory Rate 14 12 Blood Pressure 108/69 Blood Pressure Mean 82 Pulse Ox 98 98 Oxygen Delivery Method Room Air Positive well nourished and well developed General Appearance ED: well developed HEENT Reports normocephalic and head/scalp atraumatic Eyes PERRL and EOMs intact bilaterally Neck supple Chest Wall inspection of chest normal and palpation of chest normal Resp normal respiratory effort and clear to auscultation bilaterally Cardio regular rate and regular rhythm GI normal to inspection, nondistended, normoactive bowel sounds Palpation: soft Narrative: Abscess to the left posterior labia at the vaginal orifice. Digital examination in the vagina reveals a small area that feels like scar. No palpable masses. No crepitus. Back/Spine no CVA tenderness Extremity normal to inspection Neuro oriented x3 and no sensory deficits noted Sensorium / Orientation: alert Motor Exam: strength 5/5 throughout Psych mental status grossly normal MDM MDM MDM Narrative Medical decision making narrative: CBC obtained. Pelvic ultrasound with IV contrast ordered. Patient given dose of Toradol for pain. Lab Data Attestation: I reviewed the patient's lab results. Labs: Laboratory Results - last 24 hr 02/12/21 17:00 WBC 8.2 RBC 4.11 L Hgb 11.6 L Hct 34.8 L MCV 84.7 MCH 28.2 MCHC 33.3 RDW Std Deviation 39.2 RDW Coeff of Davina 12.8 Plt Count 252 MPV 10.5 Immature Gran % (Auto) 0.200 Neut % (Auto) 72.0 H Lymph % (Auto) 19.2 Dixon % (Auto) 7.3 Eos % (Auto) 1.1 Baso % (Auto) 0.2 Absolute Neuts (auto) 5.9 Absolute Lymphs (auto) 1.58 Nucleated RBC % 0 Radiography Diagnostic Testing: Clinical Impression(s) from Imaging Studies Pelvis CT 02/12/21 16:52 IMPRESSION: 2 cm left perineal/labium majus abscess. No intrapelvic infection. Electronically Signed: Donny Pizarro MD at 17:39 EDT Tel , Service support , Treatment and Re-Evaluation Comments:: White count is normal. CT scan reveals a single 2 cm abscess in the left perineum. Test results discussed with the patient. She did agree to I&D. We discussed sedation and she would prefer to complete this without sedation if at all possible. Skin anesthetized with 2 cc of 1% lidocaine. Stab incision made with a #11 blade. Loculations attempted to be broken up with curved hemostats. Minimal drainage at this time. Wall around abscess remains thick and indurated. Patient will do sitz baths at home. She is written for doxycycline and [place]. She will follow-up with [facility]. Discharge Plan Triage Chief Complaint: Other, Pain/Inj ED Provider: Mindy Bojorquez Dx/Rx/DC Orders Clinical Impression: Abscess of Bartholin's gland Instructions: Bartholin Cyst and Abscess Prescriptions: New doxycycline monohydrate 100 MG capsule 100 mg PO BID Qty: 20 RF: 0 hydrocodone-acetaminophen 5-325 mg tablet 1 tab PO Q6H PRN (Reason: pain) 3 Days Qty: 10 RF: 0 No Action ciprofloxacin HCl [ciprofloxacin HCl] 500 MG tablet 500 mg PO BID Qty: 14 RF: 0 Stand Alone Forms: ED Work / School Excuse Primary Care Provider: Care Physician,No Primary Referrals: Deborah Chino MD [STAFF PHYSICIAN] - As soon as possible Care Physician,No Primary [Primary Care Provider] - Disposition Disposition: Home, Self Care Discharge Date/Time: 02/12/21 19:36
[2021-02-12 17:09] LABS: Absolute Lymphocyte Count 1.58 X10^3/uL (0.83-4.51); Absolute Neutrophil Count 5.9 X10^3/uL (2.0-7.7); Basophil# 0.02 X10^3/uL; Basophil% 0.2 % (0-1); Eosinophil# 0.09 X10^3/uL; Eosinophils% 1.1 % (0-5); Hematocrit 34.8 % (37-47); Hemoglobin 11.6 g/dL (12.0-15.0); Lymphocyte # 1.58 X10^3/ul (0.83-4.51); Lymphocyte % 19.2 % (19-41); Mean Corp Hgb Conc 33.3 g/dL (32-36); Mean Corpuscular Hgb 28.2 pg (27.0-32.0); Mean Corpuscular Volume 84.7 fL (81-99); Mean Platelet Vol. 10.5 fl (6.2-12.0); Monocyte% 7.3 % (0-10); NRBC Flagged by Analyzer 0 % (0-5); Neutrophil # 5.93 X10^3/uL (2.7-7.7); Platelet Count 252 K/mm3 (150-450); RBC Distribution Width CV 12.8 % (11.6-14.6); RBC Distribution Width SD 39.2 fl (35.1-43.9); Red Blood Count 4.11 M/mm3 (4.2-5.4); White Blood Count 8.2 K/mm3 (4.4-11.0)
[2021-02-12] MEDS: Ketorolac 30 MG/ML Syringe IV (17:09)
[2021-02-12 19:34] VITALS: PULSE 88; RESP 12; O2SAT 98
[2021-02-12] MEDS: Lidocaine 1% (20 ml mdv) 20 ML Vial INFILT (19:34)
== END 2021-02-12 19:36 | disposition home or self-care (01) ==
PROVIDERS: Emergency Provider Emergency Medicine
DX: N75.1 Abscess of Bartholin's gland (principal); M32.9 Systemic lupus erythematosus, unspecified; M41.9 Scoliosis, unspecified
CPT/HCPCS: 56420; 10060; 72193; 85025; 96374; 96375; 99283; Q9967; A4216